=== PATIENT | male | born 1950 | race Caucasian/White ===

== ENCOUNTER → 2020-11-28 17:05 | Outpatient (CLI) | payer MEDICARE, SELFPAY ==
--- NOTE | ~2020-11-28 | XR_ITS ---
XR foot LT min 3V DATE: 11/28/2020 18:19 INDICATION: Left foot pain TECHNIQUE: 4 views COMPARISON: None FINDINGS: There is diffuse osteopenia. There is mild osteoarthritis at the first metatarsophalangeal joint and some interphalangeal joints. No fracture or dislocation, periosteal reaction or bone destruction is detected. IMPRESSION: Osteopenia Mild osteoarthritis Reviewed, dictated and finalized at location A.
== END ==
PROVIDERS: PCP Internal Medicine; Visit Provider Internal Medicine
DX: M79.672 Pain in left foot (principal); M85.872 Other specified disorders of bone density and structure, left ankle and foot; M19.072 Primary osteoarthritis, left ankle and foot
CPT/HCPCS: 73630

== ENCOUNTER → 2021-01-29 12:40 | Outpatient (CLI) | payer MEDICARE, SELFPAY ==
--- NOTE | ~2021-01-29 | XR_ITS ---
EXAMINATION: XR lumbar spine 2-3V DATE: 01/29/2021 13:05 INDICATION: Other specified disorders of bone density and structure, low back pain TECHNIQUE: Anteroposterior and lateral views of the lumbar spine, and cone-down lateral view of the l umbosacral junction were obtained. COMPARISON: 01/14/2019 FINDINGS: There are 2 mm of stable retrolisthesis of L3 on L4 and 7 mm of stable retrolisthesis of L5 on S1. There is severe loss of intervertebral disc space height at L1-2 and L3-4 with interval worse diann. Severe loss of intervertebral disc space height at L4-5 and L5-S1 is unchanged. No fracture is identified. The vertebral body heights are maintained. Small degenerative osteophytes project from th e anterior endplates of multiple vertebral bodies. IMPRESSION: 1. Severe lumbar spondylosis with interval worsening. No acute findings. Reviewed, dictated and finalized at location A.
--- NOTE | ~2021-01-29 | XR_ITS ---
EXAMINATION: XR thoracic spine 2V DATE: 01/29/2021 13:05 INDICATION: Other specified disorders of bone density and structure, back pain TECHNIQUE: AP, lateral and lateral swimmer's views of the thoracic spine were obtained. COMPARISON: MRI, 07/06/2014 FINDINGS: There are changes of interval anterior and posterior cervical through upper thoracic fusion . No fracture is identified. Bone alignment is normal. There is unchanged severe loss of intervertebr al disc space height in the upper thoracic spine. The vertebral body heights are maintained. IMPRESSION: 1. Severe upper thoracic spondylosis without acute findings. Changes of interval lower cervical throu gh upper thoracic fusion. Reviewed, dictated and finalized at location A. IMPRESSION: 1. Severe upper thoracic spondylosis without acute findings. Changes of interva l lower cervical through upper thoracic fusion.
== END ==
PROVIDERS: PCP Internal Medicine
DX: M85.89 Other specified disorders of bone density and structure, multiple sites (principal); M47.894 Other spondylosis, thoracic region; M47.896 Other spondylosis, lumbar region
CPT/HCPCS: 72070; 72100

== ENCOUNTER → 2023-01-03 13:58 | Outpatient (CLI) | payer MEDICARE, SELFPAY ==
--- NOTE | ~2023-01-03 | XR_ITS ---
EXAMINATION: XR shoulder RT min 2V INDICATION: Right shoulder pain TECHNIQUE: Four views of the right shoulder are submitted. COMPARISON: None FINDINGS: Normal alignment. No fracture. There is moderate osteoarthritis of the acromioclavicular an d glenohumeral joints. There are partially imaged surgical changes of the cervical spine. Soft tissue s are unremarkable. IMPRESSION: 1. No acute osseous abnormality. Reviewed, dictated and finalized at location F.
== END ==
PROVIDERS: PCP Family Medicine; Visit Provider Family Medicine
DX: M25.511 Pain in right shoulder (principal)
CPT/HCPCS: 73030

== ENCOUNTER → 2023-05-26 10:26 | Outpatient (CLI) | payer MEDICARE, SELFPAY ==
--- NOTE | ~2023-05-26 | XR_ITS ---
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 RESULT: Lines, tubes, and devices: Partially visualized cervical fusion hardware. Lungs and pleura: No focal consolidation, pleural effusion, or pneumothorax. Chronic left hemidiaphr agm elevation. Cardiomediastinal silhouette: Stable. Prominent central pulmonary arteries as can be seen with pulmo nary arterial hypertension. Other: No acute osseous or upper abdominal finding. Stable multilevel mild lower thoracic anterior w edge deformities and severe degenerative disc disease at L1-2. IMPRESSION: No acute cardiopulmonary process. Chronic left hemidiaphragm elevation. Reviewed, dictated and finalized at location K. HAT POUNCING OPERATOR HAND
--- NOTE | ~2023-05-26 | XR_ITS ---
EXAMINATION: XR UGI w barium swallow DATE: 05/26/2023 11:07 INDICATION: Chronic cough with reflux TECHNIQUE: The patient drank thick barium, gas-producing crystals, and thin barium. Conventional supi ne abdomen radiographs and fluoroscopy of the esophagus, stomach, and proximal small bowel were perfo rmed. Fluoroscopy exposure time was 2.2 minutes. The DAP for this procedure was 11.891 Gycm2. COMPARISON: 09/24/2013 FINDINGS: There is no mass or stricture of the esophagus. Mild presbyesophagus is noted. There is a s mall hiatal hernia with associated spontaneous gastroesophageal reflux. The stomach and proximal smal l bowel show normal folding patterns. IMPRESSION: 1. Small sliding hiatal hernia with associated spontaneous gastroesophageal reflux. 2. Mild presbyesophagus. Reviewed, dictated and finalized at location B. 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 Small sliding hiatal hernia with associated spontaneous gastroesophageal ref lux. 2. Mild presbyesophagus.
== END ==
PROVIDERS: PCP Nurse Practitioner; Visit Provider Nurse Practitioner
DX: R05.3 Chronic cough (principal); K21.9 Gastro-esophageal reflux disease without esophagitis; K44.9 Diaphragmatic hernia without obstruction or gangrene; K22.89 Other specified disease of esophagus
CPT/HCPCS: 71046; 74240

== ENCOUNTER 2024-03-12 07:50 | Outpatient (CLI) | payer MEDICARE, SELFPAY ==
--- NOTE | ~2024-03-12 | XR_ITS ---
XR chest 2V 03/12/2024 08:06 Indication: Cough Procedure: 2 view chest Comparison: 05/26/2023 Findings: Elevated left diaphragm. Left basilar atelectasis. No focal pneumonia, edema, pleural effus ion or pneumothorax. No acute osseous abnormality. Impression: 1: Left basilar atelectasis. 2: Elevation of the left diaphragm, suspicious for phrenic nerve paralysis. Reviewed, dictated and finalized at location B. ECT ASST Impression: 1: Left basilar atelectasis. 2: Elevation of the left diaphragm, suspicious for phrenic nerve paralysis.
== END 2024-03-12 07:51 | disposition home or self-care (01) ==
PROVIDERS: PCP Family Medicine; Visit Provider Nurse Practitioner Family
DX: R05.9 Cough, unspecified (principal); R91.8 Other nonspecific abnormal finding of lung field
CPT/HCPCS: 71046

== ENCOUNTER 2024-04-05 10:44 | Outpatient (CLI) | payer MEDICARE, SELFPAY ==
--- NOTE | ~2024-04-05 | CT_ITS ---
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 Abnormal chest radiographs. TECHNIQUE: Computed tomography (CT) of the neck and chest was performed with 75 mL Omnipaque-350 intr avenous contrast. Automated exposure control and iterative reconstruction technique were employed. Th e dose-length product was 715.95 mGy-cm. COMPARISON: Chest 2 views 03/12/2024, thoracic spine radiographs 01/29/2021 FINDINGS: CT NECK: There are likely changes of ocular lens replacement surgeries. There are no pathologically e nlarged lymph nodes. There is plaque in the proximal internal arteries with 0% stenosis relative to n ormal distal artery lumen diameters. There are no pathologically enlarged lymph nodes. There are read ges of anterior fusion procedure from C3 to T1 and posterior fusion procedure from C2 to T1. CT CHEST: The lungs demonstrate mild atelectasis. There is chronic mild elevation of left hemidiaphra gm. The heart size is normal. No pericardial effusion. There are no pathologically enlarged lymph nod es. There is a 10 mm cyst in left kidney. There is severe thoracic spondylosis. IMPRESSION: 1. No evidence of malignancy. Reviewed, dictated and finalized at location A. UNTANT SYSTEMS
[2024-04-05 11:02] LABS: Estimated Glomerular Filt Rate > 60
== END 2024-04-05 10:45 | disposition home or self-care (01) ==
LOC: MICIMG 10:44
PROVIDERS: PCP Family Medicine; Visit Provider Nurse Practitioner Family
DX: G56.80 Other specified mononeuropathies of unspecified upper limb (principal)
CPT/HCPCS: 70491; 71260; Q9967